=== PATIENT | female | born 1965 | race Caucasian/White ===

== ENCOUNTER 2023-02-13 19:37 | Emergency (ER) | payer OTHER, SELFPAY ==
[2023-02-13] MEDS ORDERED: Ketorolac Tromethamine 30 MG/ML VIAL ONE (20:22)
[2023-02-13] MEDS ORDERED: Cyclobenzaprine 10 MG TAB ONE (20:22)
[2023-02-13] MEDS ORDERED: Dexamethasone 10 MG/ML VIAL ONE (20:22)
== END 2023-02-13 20:35 | disposition home or self-care (01) ==
LOC: ERS 19:37
DX: M54.50 Low back pain, unspecified (principal); M54.6 Pain in thoracic spine; R20.2 Paresthesia of skin; E11.9 Type 2 diabetes mellitus without complications
CPT/HCPCS: 96372; 99283; J1100; J1885

== ENCOUNTER 2023-11-29 08:42 | Emergency (ER) | payer OTHER, SELFPAY ==
[2023-11-29] MEDS ORDERED: Proparacaine 0.5% Opth 15 ML BOT ONE (09:12)
[2023-11-29] MEDS ORDERED: Fluorescein Opthalmic Strip ONE (09:12)
[2023-11-29] MEDS ORDERED: Ondansetron PF 4 MG/2 ML Vial ONE (11:15)
[2023-11-29] MEDS ORDERED: Morphine 4 MG/ML VIAL ONE (11:15)
[2023-11-29] MEDS ORDERED: HYDROcodone/Acetaminophen 5/325 mg Tablet ONE (11:29)
== END 2023-11-29 15:31 | disposition home or self-care (01) ==
LOC: ERS 08:42
DX: M48.02 Spinal stenosis, cervical region (principal); M54.50 Low back pain, unspecified; R20.2 Paresthesia of skin; E11.9 Type 2 diabetes mellitus without complications; Z79.84 Long term (current) use of oral hypoglycemic drugs
CPT/HCPCS: 72141; 72146; 72148; 86141; J2272; J2405